=== PATIENT | female | born 1985 | race Caucasian/White ===

== ENCOUNTER 2022-06-03 10:06 | Outpatient (CLI) | payer BC, SELFPAY ==
[2022-06-03 11:25] LABS: Basophils Absolute Auto 0.1 K/mm3 (0.0-0.1); Basophils Percent Auto 0.6 % (0.2-1.2); Eosinophils Absolute Auto 0.2 K/mm3 (0-0.3); Eosinophils Percent Auto 2.3 % (0-4.4); Hematocrit 37.8 % (37.0-47.0); Hemoglobin 12.8 g/dL (12.0-15.0); Immature Granulocyte Absolute 0.02 K/mm3 (0.00-0.031); Immature Granulocyte Percent A 0.2 % (0-0.5); Lymphocytes Absolute Auto 2.05 K/mm3 (0.9-3.2); Lymphocytes Percent Auto 25.3 % (18.3-44.2); Mean Corpuscular HGB Conc 33.9 g/dl (32-36); Mean Corpuscular Hemoglobin 28.8 pg (26-34); Mean Corpuscular Volume 84.9 fl (80-100); Mean Platelet Volume 9.9 fl (7.4-10.4); Monocytes Absolute Auto 0.2 K/mm3 (0.1-0.6); Monocytes Percent Auto 2.8 % (2.6-8.5); Neutrophils Absolute Auto 5.6 K/mm3 (1.3-6.7); Neutrophils Percent Auto 68.8 % (45.5-73.1); Platelet Count Result 246 k/mm3 (150-375); Red Blood Count 4.45 M/mm3 (4.2-5.4); Red Cell Distribution Width 12.8 % (11.5-14.5); White Blood Count 8.1 K/mm3 (4.5-10.0)
[2022-06-03 11:48] LABS: Alanine Aminotransferase 20 U/L (6-35); Alkaline Phosphatase 71 U/L (38-126); Anion Gap 12 mmol/L (8-16); Aspartate Amino Transferase 23 U/L (14-36); Bilirubin,Total 0.4 mg/dL (0.2-1.3); Blood Urea Nitrogen 5 mg/dL (7-17); Carbon Dioxide 25 mmol/L (22-30); Chloride 100 mmol/L (98-107); Estimated Glomerular Filt Rate > 60; Glucose 149 mg/dL (65-110); Glucose 1 Hour PP 50gm Dose 149 mg/dL; Potassium 3.6 mmol/L (3.4-5.0); Sodium 137 mmol/L (137-145)
[2022-06-03 12:15] LABS: Creatinine Urine 163.8 mg/dL
[2022-06-03 12:21] LABS: HIV 1/2 Ab P24 Ag Result Negative (Negative)
[2022-06-03 12:53] LABS: Hepatitis B Surface Antigen Negative (Negative); Rubella IgG Antibody 13.5 IU/ML
[2022-06-03 15:32] LABS: Rapid Plasma Reagin Non-Reactive (NonReactive)
[2022-06-03 22:14] LABS: Total Protein Urine Random < 5 mg/dL
[2022-06-05 16:35] LABS: CMV IgG Antibody <0.60 U/mL (<0.60)
== END 2022-06-03 10:07 | disposition home or self-care (01) ==
LOC: ANHLAB 10:08
PROVIDERS: PCP Internal Medicine; Visit Provider Student in an Organized Health Care Education/Training Program
DX: N94.89 Other specified conditions associated with female genital organs and menstrual cycle (principal); Z87.59 Personal history of other complications of pregnancy, childbirth and the puerperium
CPT/HCPCS: 36415; 80053; 81002; 81050; 82570; 82947; 84156; 84702; 85025; 86592; 86644; 86703; 86747; 86762; 86787; 86850; 86900; 86901; 87086; 87340; G0432

== ENCOUNTER 2022-08-15 08:08 | Outpatient (CLI) | payer BC, SELFPAY ==
[2022-08-15 09:37] LABS: Glucose Fasting 101 mg/dL
[2022-08-15 10:55] LABS: Glucose 1 Hour 193 mg/dL
[2022-08-15 11:56] LABS: Glucose 2 Hour 165 mg/dL
[2022-08-15 13:07] LABS: Glucose 3 Hour 83 mg/dL
== END 2022-08-15 08:09 | disposition home or self-care (01) ==
LOC: ANHLAB 08:12
PROVIDERS: PCP Internal Medicine
DX: O09.299 Supervision of pregnancy with other poor reproductive or obstetric history, unspecified trimester (principal); Z3A.00 Weeks of gestation of pregnancy not specified
CPT/HCPCS: 36415; 82951; 82952

== ENCOUNTER 2022-09-05 22:21 | Observation (INO) | payer BC, SELFPAY ==
[2022-09-05 22:45] VITALS: BP 148/93; PULSE 88
[2022-09-05 23:01] VITALS: BP 125/64; PULSE 75
[2022-09-05 23:16] VITALS: BP 123/74; PULSE 71
[2022-09-05 23:31] VITALS: BP 124/74; PULSE 72
[2022-09-05 23:46] VITALS: BP 135/78; PULSE 74
[2022-09-06 00:01] VITALS: BP 127/67; PULSE 65
[2022-09-06 00:16] VITALS: BP 118/62; PULSE 63
[2022-09-06 00:17] VITALS: BMI 52.9
--- NOTE | 2022-09-06 00:18 | OBADM ---
This patient, Moriah Lala, admitted to the OB room OB Post 115 for observation. Patient/family oriented to hospital policies and general routines including ID bracelet, bed and alarms, visiting hours, pain management, procedures, bathroom and other care routines, personal items, smoking policy, room service/diet, and visiting hours. Patient/Family are encouraged to report perceived risks to care and to ask questions if they do not understand what they are told or what they should do.
[2022-09-06 00:31] VITALS: BP 124/60; PULSE 66
[2022-09-06 00:46] VITALS: BP 120/78; PULSE 67
--- NOTE | 2022-09-07 09:46 | PM.OBTRLD ---
OB - Triage/Final Diagnosis Visit Information Reason for evaluation: other (s/p fall. No impact to abdomen. No complaints. ) Comments/Additional reasons for admission: I have assessed the risk for this patient, Moriah Lala, and determined that she would benefit from observation care.
== END 2022-09-06 00:50 | disposition home or self-care (01) ==
PROVIDERS: Admitting Provider Advanced Practice Midwife; PCP Internal Medicine; Visit Provider Advanced Practice Midwife
DX: O99.891 Other specified diseases and conditions complicating pregnancy (principal); W19.XXXA Unspecified fall, initial encounter
CPT/HCPCS: G0378; G0379

== ENCOUNTER 2022-09-26 12:41 | Outpatient (CLI) | payer BC, SELFPAY ==
[2022-09-26 12:50] LABS: Basophils Percent Auto 0.3 % (0.2-1.2); Eosinophils Absolute Auto 0.2 K/mm3 (0-0.3); Eosinophils Percent Auto 1.4 % (0-4.4); Hematocrit 34.3 % (37.0-47.0); Hemoglobin 11.4 g/dL (12.0-15.0); Immature Granulocyte Absolute 0.06 K/mm3 (0.00-0.031); Immature Granulocyte Percent A 0.5 % (0-0.5); Lymphocytes Absolute Auto 1.78 K/mm3 (0.9-3.2); Lymphocytes Percent Auto 15.6 % (18.3-44.2); Mean Corpuscular HGB Conc 33.2 g/dl (32-36); Mean Corpuscular Hemoglobin 28.8 pg (26-34); Mean Corpuscular Volume 86.6 fl (80-100); Mean Platelet Volume 9.8 fl (7.4-10.4); Monocytes Absolute Auto 0.3 K/mm3 (0.1-0.6); Monocytes Percent Auto 2.9 % (2.6-8.5); Neutrophils Absolute Auto 9.1 K/mm3 (1.3-6.7); Neutrophils Percent Auto 79.3 % (45.5-73.1); Platelet Count Result 272 k/mm3 (150-375); Red Blood Count 3.96 M/mm3 (4.2-5.4); Red Cell Distribution Width 13.5 % (11.5-14.5); White Blood Count 11.4 K/mm3 (4.5-10.0)
[2022-09-26 13:51] LABS: HIV 1/2 Ab P24 Ag Result Negative (Negative)
== END 2022-09-26 12:42 | disposition home or self-care (01) ==
PROVIDERS: PCP Internal Medicine; Visit Provider Obstetrics & Gynecology
DX: Z34.90 Encounter for supervision of normal pregnancy, unspecified, unspecified trimester (principal); Z3A.00 Weeks of gestation of pregnancy not specified
CPT/HCPCS: 36415; 85025; 86703; G0432

== ENCOUNTER 2022-10-26 17:30 | Outpatient (CLI) | payer BC, SELFPAY ==
[2022-10-26 18:01] VITALS: BP 124/76; PULSE 86
[2022-10-26 18:16] VITALS: BP 127/69; PULSE 84
[2022-10-26 18:31] VITALS: BP 126/63; PULSE 82
[2022-10-26 18:32] LABS: Basophils Percent Auto 0.2 % (0.2-1.2); Eosinophils Absolute Auto 0.2 K/mm3 (0-0.3); Eosinophils Percent Auto 2.5 % (0-4.4); Hematocrit 32.1 % (37.0-47.0); Hemoglobin 10.8 g/dL (12.0-15.0); Immature Granulocyte Absolute 0.03 K/mm3 (0.00-0.031); Immature Granulocyte Percent A 0.3 % (0-0.5); Lymphocytes Absolute Auto 2.06 K/mm3 (0.9-3.2); Mean Corpuscular HGB Conc 33.6 g/dl (32-36); Mean Corpuscular Hemoglobin 29.1 pg (26-34); Mean Corpuscular Volume 86.5 fl (80-100); Mean Platelet Volume 10.7 fl (7.4-10.4); Monocytes Absolute Auto 0.4 K/mm3 (0.1-0.6); Monocytes Percent Auto 4.3 % (2.6-8.5); Neutrophils Absolute Auto 6.6 K/mm3 (1.3-6.7); Neutrophils Percent Auto 70.7 % (45.5-73.1); Platelet Count Result 246 k/mm3 (150-375); Red Blood Count 3.71 M/mm3 (4.2-5.4); Red Cell Distribution Width 13.8 % (11.5-14.5); White Blood Count 9.4 K/mm3 (4.5-10.0)
[2022-10-26 18:42] LABS: Alanine Aminotransferase 21 U/L (6-35); Albumin Level 3.4 g/dL (3.5-5.1); Alkaline Phosphatase 128 U/L (38-126); Anion Gap 10 mmol/L (8-16); Aspartate Amino Transferase 27 U/L (14-36); Bilirubin,Total 0.4 mg/dL (0.2-1.3); Blood Urea Nitrogen 7 mg/dL (7-17); Calcium 9.4 mg/dL (8.4-10.2); Carbon Dioxide 21 mmol/L (22-30); Chloride 103 mmol/L (98-107); Estimated Glomerular Filt Rate > 60; Glucose 134 mg/dL (65-110); Potassium 3.5 mmol/L (3.4-5.0); Sodium 134 mmol/L (137-145); Uric Acid 5.7 mg/dL (2.5-7.5)
[2022-10-26 18:46] VITALS: BP 119/67; PULSE 75
[2022-10-26 19:00] LABS: Appearance Urine Cloudy (Clear); Bacteria Urine 4+ /hpf; Bilirubin Urine Negative (Negative); Blood Urine Negative (Negative); Color Urine Dark Yellow (Yellow); Creatinine Urine 209.3 mg/dL; Glucose Urine UA Negative (Negative); Hyaline Casts Urine Present /lpf; Ketones Urine Trace mg/dL (Negative); Leukocyte Esterase Ur 1+ LEU/UL (NEGATIVE); Nitrate Urine Negative (Negative); Protein Urine Trace mg/dL (Negative); Specific Grav Ur 1.022 (1.001-1.035); Squamous Epithelial Cell Urine Moderate /hpf (Few); Total Protein Urine Random 22 mg/dL; Ur Ttl Prot Creatinine Ratio 0.11 mg/mg (0-0.20); WBC Urine 21-50 /hpf (0-3)
[2022-10-26 19:01] VITALS: BP 111/67; PULSE 73
[2022-10-26 19:09] LABS: Add Urine Microscopic? YES
== END 2022-10-26 19:12 | disposition home or self-care (01) ==
LOC: ANHOBOP 17:34 → ANHOBPP 17:35
PROVIDERS: PCP Internal Medicine; Visit Provider Student in an Organized Health Care Education/Training Program
DX: O99.891 Other specified diseases and conditions complicating pregnancy (principal); R03.0 Elevated blood-pressure reading, without diagnosis of hypertension
CPT/HCPCS: 36415; 59025; 80053; 81001; 82570; 84156; 84550; 85025; 87086; 87088; 99199

== ENCOUNTER 2022-11-01 00:05 | Outpatient (CLI) | payer BC, SELFPAY ==
[2022-11-01 00:29] VITALS: BP 131/70; PULSE 71
[2022-11-01 00:31] VITALS: BP 126/60; PULSE 71
[2022-11-01 00:46] VITALS: BP 110/51; PULSE 71
[2022-11-01 00:46] LABS: Basophils Percent Auto 0.3 % (0.2-1.2); Eosinophils Absolute Auto 0.2 K/mm3 (0-0.3); Hematocrit 32.2 % (37.0-47.0); Hemoglobin 10.7 g/dL (12.0-15.0); Immature Granulocyte Absolute 0.05 K/mm3 (0.00-0.031); Immature Granulocyte Percent A 0.5 % (0-0.5); Lymphocytes Absolute Auto 2.69 K/mm3 (0.9-3.2); Lymphocytes Percent Auto 27.4 % (18.3-44.2); Mean Corpuscular HGB Conc 33.2 g/dl (32-36); Mean Corpuscular Hemoglobin 27.9 pg (26-34); Mean Corpuscular Volume 83.9 fl (80-100); Mean Platelet Volume 10.8 fl (7.4-10.4); Monocytes Absolute Auto 0.4 K/mm3 (0.1-0.6); Monocytes Percent Auto 3.8 % (2.6-8.5); Neutrophils Absolute Auto 6.5 K/mm3 (1.3-6.7); Platelet Count Result 257 k/mm3 (150-375); Red Blood Count 3.84 M/mm3 (4.2-5.4); Red Cell Distribution Width 13.4 % (11.5-14.5); White Blood Count 9.8 K/mm3 (4.5-10.0)
[2022-11-01 00:53] LABS: Appearance Urine Clear (Clear); Bilirubin Urine Negative (Negative); Blood Urine Negative (Negative); Color Urine Yellow (Yellow); Glucose Urine UA Negative (Negative); Ketones Urine Negative (Negative); Leukocyte Esterase Ur Negative LEU/UL (NEGATIVE); Nitrate Urine Negative (Negative); Protein Urine Negative (Negative); pH Urine 6.5 (5.0-9.0)
[2022-11-01 01:01] VITALS: BP 120/69; PULSE 72
[2022-11-01 01:05] LABS: Alanine Aminotransferase 40 U/L (6-35); Albumin Level 3.2 g/dL (3.5-5.1); Alkaline Phosphatase 144 U/L (38-126); Anion Gap 5 mmol/L (8-16); Aspartate Amino Transferase 29 U/L (14-36); Bilirubin,Total 0.4 mg/dL (0.2-1.3); Blood Urea Nitrogen 3 mg/dL (7-17); Calcium 8.9 mg/dL (8.4-10.2); Carbon Dioxide 22 mmol/L (22-30); Chloride 105 mmol/L (98-107); Estimated Glomerular Filt Rate > 60; Glucose 108 mg/dL (65-110); Potassium 3.9 mmol/L (3.4-5.0); Sodium 132 mmol/L (137-145); Total Protein Urine Random 11 mg/dL; Ur Ttl Prot Creatinine Ratio 0.19 mg/mg (0-0.20); Uric Acid 3.6 mg/dL (2.5-7.5)
[2022-11-01 01:12] LABS: Add Urine Microscopic? NO
[2022-11-01 01:16] VITALS: BP 113/76; PULSE 68
[2022-11-01 01:28] VITALS: BMI 52.9
--- NOTE | 2022-11-01 01:28 | OBADM ---
This patient, Moriah Lala, admitted to the OB room OB Post 117 for observation. Patient/family oriented to hospital policies and general routines including ID bracelet, bed and alarms, visiting hours, pain management, procedures, bathroom and other care routines, personal items, smoking policy, room service/diet, and visiting hours. Patient/Family are encouraged to report perceived risks to care and to ask questions if they do not understand what they are told or what they should do.
[2022-11-01 01:31] VITALS: BP 110/62; PULSE 68
== END 2022-11-01 01:40 | disposition home or self-care (01) ==
LOC: ANHOBOP 00:08 → ANHOBPP 11-09 06:33
PROVIDERS: Obstetrics & Gynecology Gynecology; PCP Internal Medicine; Visit Provider Student in an Organized Health Care Education/Training Program
DX: O13.9 Gestational [pregnancy-induced] hypertension without significant proteinuria, unspecified trimester (principal); Z3A.00 Weeks of gestation of pregnancy not specified
CPT/HCPCS: 36415; 80053; 81003; 82570; 84156; 84550; 85025; 87086; 99199

== ENCOUNTER 2022-11-02 10:52 | Outpatient (NON) | payer BC, SELFPAY ==
[2022-11-02 11:36] LABS: Collection Time Urine 24 HOURS
[2022-11-02 11:47] LABS: Creatinine Urine 34.7 mg/dL; Total Protein Urine 24 Hr 312 mg/24hr (28-141); Total Protein Urine Random 13 mg/dL; Total Volume 24 Hour Urine 2400 ml
[2022-11-02 11:48] LABS: Patient Weight 272 Lbs
== END 2022-11-02 10:53 | disposition home or self-care (01) ==
LOC: ANHOBOP 10:58
PROVIDERS: PCP Internal Medicine; Visit Provider Obstetrics & Gynecology Gynecology
DX: O99.891 Other specified diseases and conditions complicating pregnancy (principal); R03.0 Elevated blood-pressure reading, without diagnosis of hypertension
CPT/HCPCS: 81050; 82575; 84156

== ENCOUNTER 2022-11-08 18:31 | Outpatient (CLI) | payer BC, SELFPAY ==
--- NOTE | 2022-11-08 18:50 | PC.NURSE ---
Patient arrived to OB unit with complaints of elevated blood pressures and edema. Patient reports history of c/s at 34 weeks related to preeclampsia in previous . Upon arrival patient bp 133/93. Pulse of 82. Patient denies DILLARD, blurred vision. Reflexes 2+ with absent clonus. Patient reports mild right sided pain. FHT appropriate for gestational age.
[2022-11-08 18:52] VITALS: BP 133/93; PULSE 90
[2022-11-08 19:09] LABS: Basophils Absolute Auto 0.1 K/mm3 (0.0-0.1); Basophils Percent Auto 0.5 % (0.2-1.2); Eosinophils Absolute Auto 0.1 K/mm3 (0-0.3); Eosinophils Percent Auto 1.3 % (0-4.4); Hematocrit 32.6 % (37.0-47.0); Hemoglobin 10.6 g/dL (12.0-15.0); Immature Granulocyte Absolute 0.05 K/mm3 (0.00-0.031); Immature Granulocyte Percent A 0.5 % (0-0.5); Lymphocytes Percent Auto 22.1 % (18.3-44.2); Mean Corpuscular HGB Conc 32.5 g/dl (32-36); Monocytes Absolute Auto 0.4 K/mm3 (0.1-0.6); Monocytes Percent Auto 4.3 % (2.6-8.5); Neutrophils Absolute Auto 7.1 K/mm3 (1.3-6.7); Neutrophils Percent Auto 71.3 % (45.5-73.1); Platelet Count Result 245 k/mm3 (150-375); Red Blood Count 3.79 M/mm3 (4.2-5.4); Red Cell Distribution Width 13.7 % (11.5-14.5)
[2022-11-08 19:13] LABS: Appearance Urine Cloudy (Clear); Bacteria Urine 2+ /hpf; Bilirubin Urine Negative (Negative); Blood Urine Negative (Negative); Color Urine Yellow (Yellow); Glucose Urine UA Negative (Negative); Ketones Urine Negative (Negative); Leukocyte Esterase Ur Trace LEU/UL (NEGATIVE); Nitrate Urine Negative (Negative); Non Pathogenic Casts 0-2; Protein Urine 1+ mg/dL (Negative); RBC Urine 0-2 /hpf (0-2); Specific Grav Ur 1.019 (1.001-1.035); Squamous Epithelial Cell Urine Moderate /hpf (Few)
[2022-11-08 19:15] LABS: Add Urine Microscopic? YES
[2022-11-08 19:16] VITALS: BP 117/66; PULSE 83
[2022-11-08 19:16] LABS: Creatinine Urine 132.5 mg/dL; Total Protein Urine Random 18 mg/dL; Ur Ttl Prot Creatinine Ratio 0.14 mg/mg (0-0.20)
[2022-11-08 19:21] LABS: Alanine Aminotransferase 18 U/L (6-35); Albumin Level 3.3 g/dL (3.5-5.1); Alkaline Phosphatase 140 U/L (38-126); Anion Gap 7 mmol/L (8-16); Aspartate Amino Transferase 17 U/L (14-36); Bilirubin,Total 0.4 mg/dL (0.2-1.3); Blood Urea Nitrogen 5 mg/dL (7-17); Calcium 8.4 mg/dL (8.4-10.2); Carbon Dioxide 23 mmol/L (22-30); Chloride 103 mmol/L (98-107); Estimated Glomerular Filt Rate > 60; Glucose 114 mg/dL (65-110); Potassium 3.7 mmol/L (3.4-5.0); Sodium 133 mmol/L (137-145); Uric Acid 3.4 mg/dL (2.5-7.5)
[2022-11-08 19:31] VITALS: BP 131/70; PULSE 83
--- NOTE | 2022-11-08 19:34 | PC.NURSE ---
Reported lab results to Dr. Hartman as well as maternal and assessments. Patient may be discharged to home, instructed to follow up at scheduled OB appointment.
--- NOTE | 2022-11-08 19:45 | PC.NURSE ---
HIP precautions reviewed with patient. Patient verbalizes understanding. All questions were answered. Patient left ambulating at 1945
== END 2022-11-08 19:45 | disposition home or self-care (01) ==
LOC: ANHOBOP 18:35 → ANHOBPP 18:35
PROVIDERS: Obstetrics & Gynecology; PCP Internal Medicine; Visit Provider Obstetrics & Gynecology
DX: O13.9 Gestational [pregnancy-induced] hypertension without significant proteinuria, unspecified trimester (principal); Z3A.00 Weeks of gestation of pregnancy not specified
CPT/HCPCS: 36415; 59025; 80053; 81001; 82570; 84156; 84550; 85025; 87086; 99199

== ENCOUNTER 2022-11-17 11:03 | Outpatient (RCR) | payer BC, SELFPAY ==
[2022-11-10 14:18] VITALS: BP 148/87; PULSE 85
[2022-11-13 17:13] VITALS: BP 122/77; PULSE 77
[2022-11-17 11:30] LABS: Basophils Percent Auto 0.3 % (0.2-1.2); Eosinophils Absolute Auto 0.2 K/mm3 (0-0.3); Eosinophils Percent Auto 1.6 % (0-4.4); Hemoglobin 10.8 g/dL (12.0-15.0); Immature Granulocyte Absolute 0.05 K/mm3 (0.00-0.031); Immature Granulocyte Percent A 0.5 % (0-0.5); Lymphocytes Absolute Auto 1.79 K/mm3 (0.9-3.2); Lymphocytes Percent Auto 18.8 % (18.3-44.2); Mean Corpuscular HGB Conc 32.7 g/dl (32-36); Mean Corpuscular Hemoglobin 28.1 pg (26-34); Mean Corpuscular Volume 85.9 fl (80-100); Mean Platelet Volume 11.2 fl (7.4-10.4); Monocytes Absolute Auto 0.4 K/mm3 (0.1-0.6); Monocytes Percent Auto 4.4 % (2.6-8.5); Neutrophils Absolute Auto 7.1 K/mm3 (1.3-6.7); Neutrophils Percent Auto 74.4 % (45.5-73.1); Platelet Count Result 217 k/mm3 (150-375); Red Blood Count 3.84 M/mm3 (4.2-5.4); Red Cell Distribution Width 13.9 % (11.5-14.5); White Blood Count 9.5 K/mm3 (4.5-10.0)
[2022-11-17 11:37] LABS: Creatinine Urine 163.9 mg/dL; Total Protein Urine Random 47 mg/dL; Ur Ttl Prot Creatinine Ratio 0.29 mg/mg (0-0.20)
[2022-11-17 11:43] LABS: Alanine Aminotransferase 15 U/L (6-35); Albumin Level 3.4 g/dL (3.5-5.1); Alkaline Phosphatase 150 U/L (38-126); Anion Gap 6 mmol/L (8-16); Aspartate Amino Transferase 18 U/L (14-36); Bilirubin,Total 0.4 mg/dL (0.2-1.3); Blood Urea Nitrogen 5 mg/dL (7-17); Calcium 9.5 mg/dL (8.4-10.2); Carbon Dioxide 23 mmol/L (22-30); Chloride 104 mmol/L (98-107); Estimated Glomerular Filt Rate > 60; Glucose 103 mg/dL (65-110); Sodium 133 mmol/L (137-145); Uric Acid 4.3 mg/dL (2.5-7.5)
[2022-11-17 11:48] LABS: Appearance Urine Cloudy (Clear); Bacteria Urine 4+ /hpf; Bilirubin Urine Negative (Negative); Blood Urine Negative (Negative); Color Urine Yellow (Yellow); Glucose Urine UA Negative (Negative); Ketones Urine Trace mg/dL (Negative); Leukocyte Esterase Ur 1+ LEU/UL (NEGATIVE); Need Manual Microscopic Reviewed; Nitrate Urine Negative (Negative); Protein Urine 1+ mg/dL (Negative); Specific Grav Ur 1.021 (1.001-1.035); Squamous Epithelial Cell Urine Many /hpf (Few); WBC Urine 21-50 /hpf (0-3)
[2022-11-17 11:49] LABS: Add Urine Microscopic? YES
[2022-11-17 12:03] VITALS: BP 159/98
== END 2022-12-18 17:38 | disposition home or self-care (01) ==
LOC: ANHOBOP 11:03
PROVIDERS: Obstetrics & Gynecology; PCP Internal Medicine; Visit Provider Student in an Organized Health Care Education/Training Program
DX: O16.3 Unspecified maternal hypertension, third trimester (principal); Z3A.36 36 weeks gestation of pregnancy; Z3A.37 37 weeks gestation of pregnancy
CPT/HCPCS: 36415; 59025; 80053; 81001; 82570; 84156; 84550; 85025; 87086

== ENCOUNTER 2022-11-19 17:33 | Outpatient (CLI) | payer BC, SELFPAY ==
[2022-11-19 17:50] LABS: Hematocrit 31.5 % (37.0-47.0); Hemoglobin 10.3 g/dL (12.0-15.0); Mean Corpuscular HGB Conc 32.7 g/dl (32-36); Mean Corpuscular Hemoglobin 28.1 pg (26-34); Mean Corpuscular Volume 86.1 fl (80-100); Mean Platelet Volume 10.8 fl (7.4-10.4); Platelet Count Result 195 k/mm3 (150-375); Red Blood Count 3.66 M/mm3 (4.2-5.4); White Blood Count 10.3 K/mm3 (4.5-10.0)
[2022-11-20 10:30] LABS: Rapid Plasma Reagin Non-Reactive (NonReactive)
== END 2022-11-19 17:34 | disposition home or self-care (01) ==
LOC: ANHLAB 17:35
PROVIDERS: PCP Internal Medicine; Visit Provider Obstetrics & Gynecology
DX: Z01.812 Encounter for preprocedural laboratory examination (principal)
CPT/HCPCS: 36415; 85027; 86592; 86850; 86900; 86901

== ENCOUNTER 2022-11-20 09:54 | Inpatient (IN) | payer BC, SELFPAY ==
--- NOTE | 2022-11-10 14:07 | PC.NURSE ---
Patient states she will be a repeat c/s-- has not be scheduled at time of pre-admit Patient given requisition for lab draw prior to surgery
--- NOTE | 2022-11-19 13:38 | WPDANESEPPF ---
Anes - Initial Pre Proc Eval Procedure: Operation Date: 11/20/22 12:00 Proposed Procedures p Repeat Section - Justyn Nuñez MD Date/Time: 11/19/22 13:38 Surgeon: Mikey Gandhi MD Pre Op Diagnosis: C/S Patient Data Age: 37 Gender: F Height: Weight: Allergies Allergy/AdvReac Type Severity Reaction Status Date / Time No Known Allergies Allergy Verified 11/16/22 17:04 Home Medications Medication Instructions Recorded Confirmed Type prenat.vits,jing,xyv-bzox-scldy 1 tablet PO DAILY 06/04/22 11/20/22 History aspirin 81 mg chewable tablet 162 mg PO DAILY 08/04/22 11/20/22 History Patient hx anesthesia problems: none Family hx anesthesia problems: none Results Review: All pre-operative results and documents have been reviewed as part of the pre-operative evaluation. [facility] Past Medical History Medical History (Updated 11/20/22 @ 13:02 by Charles Scott MD) Cyst near tailbone cyst removed Obesity Obesity, morbid, BMI 50 or higher Preeclampsia Suppression of menstruation Surgical History Surgical History Delivery by section (10/12/18) primary c/s 34 weeks preeclampsia/ edema Family History Family History Grandparent Diabetes mellitus Alzheimer disease Cancer Social History Social History Smoking status: Never smoker Alcohol intake: never Substance use: never Substance use type: does not use Lack of Transportation: No Lack of Food: Never True Current Housing: I Have Housing Concerned About Future Housing: No Difficulty Paying Gas/Electric Bills: No Difficulty Paying for Meds: No Currently Unemployed: No Education: Bachelor's Degree Difficulty w/ Childcare or Family Care: No Living arrangements: other Additional living arrangements comments: Occupation/Education: other Additional occupation/education comments: self employed Gender identity (if verbalized by the patient): Female Sexual Orientation (if Verbalized by the Patient): Straight or Heterosexual Spiritual care concerns: No Anes - Eval Final PreProcedure Day of Procedure 11/19/22 13:38 Patient weight: super morbidly obese Heart: regular rate and rhythm Lungs: clear to auscultation and normal air movement Airway: Mallampati scale class II Neurological: alert and oriented Last oral intake: >/= 8 hours ASA classification: III Emergent: no Anesthetic plan: proceed Anesthesia type and monitoring: regional spinal Results Review: All pre-operative results and documents have been reviewed as part of the pre-operative evaluation. Informed Consent: The patient's anesthetic plan and its attendant risks and benefits were discussed with the patient/family/POA. Questions were solicited and answers provided to the satisfaction of the patient/family/POA.
--- NOTE | 2022-11-19 16:23 | PM.IMHP ---
H&P: HPI History of Present Illness Date/Time: 11/19/22 16:23 Chief Complaint: gestational hypertension intrauterine at term history of section x1 class 3 obesity Narrative: 37-year-old who presents at 38 weeks 0 days for repeat section for gestational hypertension. Patient's obstetric history is complicated by history of preeclampsia requiring delivery via at 34 weeks. Patient did not require any antihypertensive medications . Patient developed gestational hypertension in this . Preeclampsia lab work remained within normal limits. Patient's blood pressures were beginning to exacerbate. Her protein level was rising but had not reached qualification for preeclampsia. Patient's medical history also complicated by class 3 obesity. Review of Systems Cardiovascular: Cardiovascular: Denies chest pain, Denies leg edema, Denies palpitations, Denies dyspnea and Denies dyspnea on exertion Respiratory: Respiratory: Denies cough, Denies dyspnea and Denies dyspnea on exertion Gastrointestinal: Gastrointestinal: Denies abdominal pain, Denies constipation, Denies diarrhea, Denies nausea and Denies vomiting Genitourinary: Genitourinary: Denies hematuria, Denies urinary frequency, Denies dysuria, Denies pelvic pain, Denies urinary incontinence and Denies vaginal discharge Neurologic: Reports system reviewed and no additional complaints, except as documented Psychiatric: Psychiatric: Reports no additional psychiatric complaints Endocrine: Endocrine: Denies palpitations PMFSH Past Medical History Medical History Cyst near tailbone cyst removed Obesity Preeclampsia Suppression of menstruation Surgical History Surgical History Delivery by section (10/12/18) primary c/s 34 weeks preeclampsia/ edema Family History Family History Grandparent Diabetes mellitus Alzheimer disease Cancer Social History Social History Smoking status: Never smoker Alcohol intake: never Substance use: never Substance use type: does not use Living arrangements: other Additional living arrangements comments: Occupation/Education: other Additional occupation/education comments: self employed Gender identity (if verbalized by the patient): Female Sexual Orientation (if Verbalized by the Patient): Straight or Heterosexual Spiritual care concerns: No Meds Home Medications and Allergies Home Medications Medication Instructions Recorded Confirmed Type prenat.vits,jing,cwy-pnbq-ubcdq 1 tablet PO DAILY 06/04/22 10/13/22 History aspirin 81 mg chewable tablet 162 mg PO DAILY 08/04/22 10/13/22 History Allergies Allergy/AdvReac Type Severity Reaction Status Date / Time No Known Allergies Allergy Verified 11/16/22 17:04 Exam Const: General: no acute distress Eyes: EOM: EOMs intact bilaterally Neck: Neck: supple Thyroid: thyroid normal Chest: Breast/axilla inspection: normal inspection of the breasts Breast/axilla palpation: normal palpation of the breasts, normal palpation of the axillae and no axillary lymphadenopathy Resp: Effort & Inspection: normal respiratory effort Auscultation: clear to auscultation bilaterally Cardio: Rate: regular rate Rhythm: regular rhythm GI: Inspection: non-distended and other (Gravid) GI Palp: Yes Soft to palpation, No Tenderness to palpation present (GI) and No Guarding due to palpation present (GI) Auscultation: normal bowel sounds : Speculum Exam - Vagina: No vaginal bleeding OB/external & speculum: external exam normal; No vaginal bleeding Skin: General skin exam: normal color and no rashes or lesions noted Neuro: Cognition (Neuro): normal cognition Speech: normal speech
[2022-11-20] VITALS (48 sets, daily range): BP systolic 100–166; BP diastolic 42–100; PULSE 53–80; RESP 14–20; TEMP 36.3–36.6; O2SAT 95–99; BMI 56.0
--- NOTE | 2022-11-20 09:54 | LDADM ---
This patient, Moriah Lala, was admitted to Labor/Delivery/Recovery 120 on 11/20/22 at 09:54. Plans for labor, pain management and were discussed with patient. Patient/family oriented to hospital policies and general routines including ID bracelet, bed and alarms, visiting hours, pain management, procedures, bathroom and other care routines, personal items, smoking policy, room service/diet and guest tray routines, security routines, and visiting hours. Patient/Family are encouraged to report perceived risks to care and to ask questions if they do not understand what they are told or what they should do. See OBIX for further documentation.
[2022-11-20] MEDS: LACTATED RINGERS 1,000 ML 999 ML IV CONT (10:33)
[2022-11-20] MEDS: LACTATED RINGERS 1,000 ML 125 ML IV CONT ×2 (11:13→13:40)
[2022-11-20] MEDS: ceFAZolin 3 GM/D5W 100 ML 100 ML IVPB (13:42)
--- NOTE | 2022-11-20 14:50 | W.PM.PROC2 ---
Procedure Note - Detailed Date of Procedure 11/20/22 Pre-op Diagnosis intrauterine at term prior x 1 obesity gestational hypertension Post-op Diagnosis Same Procedure Performed repeat low transverse Surgeon Justyn Nuñez MD Anesthesia Spinal and Epidural Description of Procedure The patient was taken to the operating room. A combined spinal epidural anesthesic was administered and found to be adequate at a t-10 level. The patient was placed in a supine position with a slight left lateral tilt. A maguire catheter was placed with return of clear urine. A Bovie grounding pad was placed. Surgical prep was performed and surgical drapes were placed. A surgical time out was performed. A Pfannenstiel skin incision was then made with the scalpel and carried through to the underlying layer of fascia. The fascia was then incised in the midline and the incision was extended laterally with the Lovell scissors. The superior aspect of the fascia was then grasped with the Rupinder clamps, elevated, and the underlying rectus muscles dissected off bluntly and sharply. Attention was then turned to the inferior aspect of this incision which, in a similar fashion, was grasped, tented up with the Rupinder clamps, and the rectus muscles dissected off both bluntly and sharply. The rectus muscles were then in the midline. The peritoneum was identified and entered bluntly. The peritoneal incision was then extended superiorly and inferiorly with good visualization of the bladder. There is some adnexal adhesions to the anterior abdominal wall. These adhesions were taken down with Bovie cautery. An Rommel retractor was used for better visualization. The vesico-uterine serosa was identified and dissected to create a bladder flap. The bladder blade was reinserted. The uterus was inspected for rotation. A low-transverse uterine incision was made sharply with the scalpel and entry was made into the uterine cavity. An amniotomy was made and copious amounts of clear fluid were noted on return. The uterine incision was extended laterally bluntly. Attempt was made to deliver the head to the hysterotomy. Due to body habitus, fundal pressure was inadequate. As this was anticipated, Underwood forceps were ready on the table. fetus was known to be LEODAN with face facing maternal right. Underwood forceps blades were guided through the hysterotomy and positioned correctly on the head. Gentle traction was applied with fundal pressure. head was easily delivered through the hysterotomy. Forceps were disarticulated. Nuchal cord x1 was noticed and reduced. The remainder the fetus was delivered atraumatically. Patient had good tone, grimace, cry at the time of delivery. The umbilical cord was clamped twice and cut. The infant was handed off to the waiting staff. At the time of the delivery, the had good color, tone and grimace. The cried with minimal stimulation. A second segment of umbilical cord was clamped and cut for cord blood gasses. Cord blood was collected for determination of the blood type and for direct Littlejohn. The placenta was delivered spontaneously without difficulty. The placenta appeared grossly normal and complete. The uterus was exteriorized and cleared of all clots and debris. The uterine incision was repaired using 0-monocryl suture in a running fashion. The uterine closure was inspected for hemostasis. The posterior aspect of the uterus and the broad ligaments were inspected and the posterior cul-de-sac cleared of fluid and blood clots. The uterine closure was again inspected and found to be hemostatic. The uterus was returned to the abdominal cavity. The pericolic gutters were inspected and were cleared of all blood clots and debris. The uterine closure was then re inspected to ensure hemostasis as were all subfascial tissues. The peritoneum was closed using 3-0 vicryl in a running fashion. The fascia
[2022-11-20] MEDS: OXYTOCIN 30 UNITS/NS 500 ML 30 UNITS/500 ML BAG 125 UNITS IV CONT (15:28)
--- NOTE | 2022-11-20 17:20 | OBPPTRN ---
Patient transferred to post room # 282 via stretcher accompanied by fob and infant. Pt transferred to bed via maxi air without difficulty. Pt introductions made and plan of care discussed per post op c section, pain management, bottle feeding, daily care activities. Support person present. No barriers to learning identified at this time. PT given such instructions via one to one discussion, mom baby care guide and demonstration this shift. Oriented to unit, room, information board, rooming in, admission packet and security measures. Patient verbalizes understanding.
[2022-11-20] MEDS: SIMETHICONE 80 MG TAB.CHEW PO (19:19)
[2022-11-20] MEDS: HYDROcodone/acetaminophen (*CRX) 5-325 MG TABLET 1 TAB PO (19:19)
[2022-11-20] MEDS: KETOROLAC 30 MG/ML VIAL (*BKC) IV PUSH (19:20)
[2022-11-20] MEDS: DEXTROSE 5%/0.45% SOD CHL 1,000 ML 125 ML IV CONT (20:12)
[2022-11-20] MEDS: HYDROcodone/acetaminophen (*CRX) 10-325 MG TABLET 1 TAB PO (23:23)
[2022-11-21] MEDS: KCL 20 MEQ/D5/0.45% SOD CHL 1,000 ML 125 ML IV CONT (04:00)
[2022-11-21 04:38] LABS: Basophils Percent Auto 0.4 % (0.2-1.2); Eosinophils Absolute Auto 0.2 K/mm3 (0-0.3); Eosinophils Percent Auto 1.8 % (0-4.4); Hematocrit 30.7 % (37.0-47.0); Hemoglobin 9.7 g/dL (12.0-15.0); Immature Granulocyte Absolute 0.04 K/mm3 (0.00-0.031); Immature Granulocyte Percent A 0.4 % (0-0.5); Mean Corpuscular HGB Conc 31.6 g/dl (32-36); Mean Corpuscular Hemoglobin 27.7 pg (26-34); Mean Corpuscular Volume 87.7 fl (80-100); Mean Platelet Volume 11.5 fl (7.4-10.4); Monocytes Absolute Auto 0.5 K/mm3 (0.1-0.6); Monocytes Percent Auto 4.2 % (2.6-8.5); Neutrophils Absolute Auto 8.5 K/mm3 (1.3-6.7); Neutrophils Percent Auto 79.2 % (45.5-73.1); Platelet Count Result 181 k/mm3 (150-375); White Blood Count 10.7 K/mm3 (4.5-10.0)
[2022-11-21] MEDS: HYDROcodone/acetaminophen (*CRX) 10-325 MG TABLET 1 TAB PO ×4 (04:38→15:07)
--- NOTE | 2022-11-21 07:03 | WPDANLDNPN2 ---
Anes-Prog Note L&D-Neuraxial Date/Time: 11/21/22 07:03 Neuraxial medications: intrathecal PF morphine Opiod-related complaints: none Patient feedback: Patient satisfied with post-operative pain management.
--- NOTE | 2022-11-21 07:03 | WPDANLDPN2 ---
Anes-Prog Note L&D Date/Time: 11/21/22 07:03 Comfortable throughout: section Neuraxial method: spinal Epidural/Spinal procedure site: clean & non-tender Neuro status: Neuro function grossly intact. Cardiovascular status: normal Respiratory status: normal Airway patency: baseline Mental status: baseline Post-Op hydration status: normal Vital Signs: Last Vital Signs Temp 36.4 C 11/20/22 23:28 Pulse 80 11/20/22 23:28 Resp 18 11/20/22 23:28 BP 130/86 11/20/22 23:28 Pulse Ox 99 11/20/22 23:28 O2 Del Method Room Air 11/20/22 23:38 Pain score (VAS): 3 I/O: Intake & Output 11/20/22 11/20/22 11/21/22 15:59 23:59 07:59 Intake Total 1000 1480 1800 Output Total 425 335 700 Balance 575 1145 1100 Patient feedback: Patient satisfied with anesthetic care.
--- NOTE | 2022-11-21 07:06 | PM.OBPNVD ---
OB - PN: Subj Subjective Date/time seen: 11/21/22 07:06 Interval history: She has adequate pain control, no flatus, tolerated reg diet, has ambulated in room. No SOB or CP. Mild tenderness in lower ext bilat. OB - PN: Obj Data Labs 11/21/22 04:08 Labs: Laboratory Results - last 24 hr 11/21/22 04:08 WBC 10.7 H RBC 3.50 L Hgb 9.7 L Hct 30.7 L MCV 87.7 MCH 27.7 MCHC 31.6 L RDW 14.0 Plt Count 181 MPV 11.5 H Immature Gran % (Auto) 0.4 Neut % (Auto) 79.2 H Lymph % (Auto) 14.0 L [place] % (Auto) 4.2 Eos % (Auto) 1.8 Baso % (Auto) 0.4 Lymph # (Auto) 1.50 [place] # (Auto) 0.5 Eos # (Auto) 0.2 Baso # (Auto) 0.0 Abs Immat Gran (auto) 0.04 H Absolute Neuts (auto) 8.5 H Absolute Nucleated RBC 0.0 Nucleated RBC % 0.0 OB - PN A/P Assessment and Plan (1) Previous section: Code(s): Z98.891 - History of uterine scar from previous surgery Status: Acute Assessment and Plan: POD 1 s/p repeat c/s. She is doing well. Stable blood pressures. Routine post op care. Asymptomatic mild anemia. Iron supplementation. Time Spent With Patient Time: Total time spent is greater than 50% in coordination of care (as documented) at patient's floor/unit and/or counseling patient: Exam Const: General: comfortable and no acute distress Resp: Effort & Inspection: normal respiratory effort GI: Inspection: normal to inspection Other: fundus at umb firm nontender dressing small amount soiling near vacuum insertion on dressing pad, nothing expressed Extrem: General: normal to inspection and no calf tenderness Psych: Mental Status: mental status grossly normal Affect: normal affect
[2022-11-21 08:15] VITALS: BP 127/85; PULSE 76; RESP 16; TEMP 36.7; O2SAT 98
[2022-11-21] MEDS: POLYSACCHARIDE IRON COMPLEX 150 MG CAPSULE PO ×2 (08:32→16:09)
[2022-11-21] MEDS: MULTIVIT/MIN/PREN/FOL AC/IRON TABLET 1 TAB PO (08:32)
[2022-11-21] MEDS: DOCUSATE SODIUM 100 MG CAPSULE PO ×2 (08:32→16:09)
[2022-11-21] MEDS: IBUPROFEN 600 MG TABLET PO ×2 (08:32→15:07)
[2022-11-21 18:45] VITALS: BP 143/77; PULSE 78; RESP 16; TEMP 37; O2SAT 99
[2022-11-21] MEDS: HYDROcodone/acetaminophen (*CRX) 5-325 MG TABLET 1 TAB PO (19:08)
[2022-11-21] MEDS: SIMETHICONE 80 MG TAB.CHEW PO (19:08)
[2022-11-22] MEDS: HYDROcodone/acetaminophen (*CRX) 10-325 MG TABLET 1 TAB PO (00:18)
[2022-11-22] MEDS: IBUPROFEN 600 MG TABLET PO ×4 (00:18→21:37)
[2022-11-22] MEDS: SIMETHICONE 80 MG TAB.CHEW PO ×3 (00:19→21:37)
[2022-11-22] MEDS: HYDROcodone/acetaminophen (*CRX) 5-325 MG TABLET 1 TAB PO ×6 (03:39→21:37)
[2022-11-22] MEDS: DOCUSATE SODIUM 100 MG CAPSULE PO ×2 (07:47→17:18)
[2022-11-22] MEDS: POLYSACCHARIDE IRON COMPLEX 150 MG CAPSULE PO ×2 (07:47→17:18)
[2022-11-22] MEDS: MULTIVIT/MIN/PREN/FOL AC/IRON TABLET 1 TAB PO (07:48)
[2022-11-22 08:00] VITALS: BP 151/94; PULSE 80; RESP 16; TEMP 36.6; O2SAT 98
[2022-11-22 10:15] VITALS: BP 153/88; PULSE 66
[2022-11-22] MEDS: NIFEdipine 30 MG TAB.ER.24 PO (10:26)
[2022-11-22 10:43] LABS: Hematocrit 29.1 % (37.0-47.0); Hemoglobin 9.2 g/dL (12.0-15.0); Mean Corpuscular HGB Conc 31.6 g/dl (32-36); Mean Corpuscular Hemoglobin 27.9 pg (26-34); Mean Corpuscular Volume 88.2 fl (80-100); Mean Platelet Volume 10.7 fl (7.4-10.4); Platelet Count Result 220 k/mm3 (150-375); Red Cell Distribution Width 14.3 % (11.5-14.5); White Blood Count 9.9 K/mm3 (4.5-10.0)
--- NOTE | 2022-11-22 10:45 | PM.OBPNVD ---
OB - PN: Subj Subjective Date/time seen: 11/22/22 10:45 Interval history: She has adequate pain control, positive flatus, tolerated reg diet, has ambulated wthout problems. No SOB or CP. Denies headache scotomata or RUQ pain. OB - PN: Obj Data Labs 11/22/22 10:36 11/22/22 10:36 Labs: Laboratory Results - last 24 hr 11/22/22 10:36 WBC 9.9 RBC 3.30 L Hgb 9.2 L Hct 29.1 L MCV 88.2 MCH 27.9 MCHC 31.6 L RDW 14.3 Plt Count 220 MPV 10.7 H OB - PN A/P Assessment and Plan (1) Previous section: Code(s): Z98.891 - History of uterine scar from previous surgery Status: Acute Assessment and Plan: Doing well. Routine post op care. (2) Elevated blood pressure reading: Code(s): R03.0 - Elevated blood-pressure reading, without diagnosis of hypertension Status: Acute Assessment and Plan: Persistant this morning. No signs or symptoms of pre-eclampsia. PIH labs today. Will start Procardia. Time Spent With Patient Time: Total time spent is greater than 50% in coordination of care (as documented) at patient's floor/unit and/or counseling patient: Exam Const: General: comfortable and no acute distress Eyes: General: appearance normal, both eyes and all related structures Resp: Effort & Inspection: normal respiratory effort GI: Other: dressing soiling at suction unchanged from yesterday, fundus firm nontender, mild distension, no RUQ pain Neuro: General: oriented to person, oriented to place and oriented to time Other: DTR 2+ Extrem: General: normal to inspection (1+ edema bilat, neg homans) Psych: Mental Status: mental status grossly normal
[2022-11-22 10:57] LABS: Uric Acid 4.1 mg/dL (2.5-7.5)
[2022-11-22 10:58] LABS: Alanine Aminotransferase 15 U/L (6-35); Albumin Level 2.9 g/dL (3.5-5.1); Alkaline Phosphatase 109 U/L (38-126); Anion Gap 2 mmol/L (8-16); Aspartate Amino Transferase 22 U/L (14-36); Bilirubin,Total 0.3 mg/dL (0.2-1.3); Blood Urea Nitrogen 9 mg/dL (7-17); Calcium 8.9 mg/dL (8.4-10.2); Carbon Dioxide 28 mmol/L (22-30); Chloride 105 mmol/L (98-107); Estimated CRCL calculation 139 ml/min; Estimated Glomerular Filt Rate > 60; Glucose 125 mg/dL (65-110); Sodium 135 mmol/L (137-145)
[2022-11-22 12:15] VITALS: BP 150/80; PULSE 81
[2022-11-22 16:15] VITALS: BP 154/91; PULSE 76
[2022-11-22 18:50] VITALS: BP 157/91; PULSE 78; RESP 16; TEMP 36.6; O2SAT 99
[2022-11-22 23:15] VITALS: BP 144/87; PULSE 79; RESP 16; TEMP 36.8; O2SAT 98
[2022-11-23] MEDS: SIMETHICONE 80 MG TAB.CHEW PO ×2 (03:35→07:47)
[2022-11-23] MEDS: HYDROcodone/acetaminophen (*CRX) 5-325 MG TABLET 1 TAB PO ×3 (03:35→11:26)
[2022-11-23] MEDS: IBUPROFEN 600 MG TABLET PO ×2 (03:35→09:07)
[2022-11-23 03:40] VITALS: BP 136/90; PULSE 80; RESP 16; TEMP 36.5; O2SAT 99
[2022-11-23 07:40] VITALS: BP 140/80; PULSE 89; RESP 18; TEMP 36.9; O2SAT 98
[2022-11-23] MEDS: POLYSACCHARIDE IRON COMPLEX 150 MG CAPSULE PO (07:47)
[2022-11-23] MEDS: DOCUSATE SODIUM 100 MG CAPSULE PO (07:50)
[2022-11-23] MEDS: NIFEdipine 30 MG TAB.ER.24 PO (09:07)
--- NOTE | 2022-11-23 12:06 | PC.NURSE ---
Patient viewed the discharge video Mother & Baby Care, The First Two Weeks . Patient was given the opportunity and encouraged to ask questions. Patient verbalized understanding of information shared and has been given the mother/baby guide for home reference.
[2022-11-23 12:30] VITALS: BP 135/86; PULSE 84; RESP 18; TEMP 37.1; O2SAT 99
--- NOTE | 2022-11-23 13:05 | PM.OBDSVD ---
DS: Admitting Diagnosis Discharge Date 11/23/22 Admitting Diagnosis intrauterine at term gestational hypertension prior x1 obesity DS: Discharge Diagnosis Discharge Diagnosis (1) Previous section: Code(s): Z98.891 - History of uterine scar from previous surgery Status: Acute (2) Supervision of high risk , unspecified, third trimester: Code(s): O09.93 - Supervision of high risk , unspecified, third trimester Status: Acute (3) Gestational hypertension: Code(s): O13.9 - Gestational [-induced] hypertension without significant proteinuria, unspecified trimester Status: Acute (4) Obesity, morbid, BMI 50 or higher: Code(s): E66.01 - Morbid (severe) obesity due to excess calories Status: Acute OB - DS: Summary OB Procedures : None OB Procedures Intrapartum: OB Procedures: : None Peripartum Data Delivery Method: Section Procedures: Procedures Operation Date: 11/20/22 12:00 Actual Procedure Side Surgeon p Repeat Section Justyn Nuñez MD complications: none Status at Discharge Functional status at discharge: independent ambulation Overall status at discharge: patient is progressing back to baseline Time Spent with Patient Time attestation: Total time spent providing and/or coordinating discharge services: Time spent: Less than 30 minutes Exam Const: General: comfortable and no acute distress Resp: Effort & Inspection: normal respiratory effort Auscultation: clear to auscultation bilaterally Cardio: Rate: regular rate GI: Inspection: non-distended GI Palp: Yes Soft to palpation, No Firmness to palpation present (GI), Yes Tenderness to palpation present (GI) (mild tenderness over incision ) and No Guarding due to palpation present (GI) Auscultation: normal bowel sounds Psych: Appearance: grossly normal Mental Status: mental status grossly normal Discharge Plan Discharge Discharging Clinician: Justyn Nuñez Patient Disposition: Home, Self-Care Activity: as tolerated and pelvic rest Diet: regular Patient Instructions: Antibiotic Form Stand Alone Forms: General Discharge Information Follow-up/Referrals: Justyn Nuñez MD [Physician] - 1 Week Discharge Medications: New hydrocodone-acetaminophen 5-325 mg tablet 1 tablet PO Q6H PRN (Reason: pain) Qty: 28 0RF nifedipine [Procardia XL] 30 mg Tablet Extended Release 24hr 30 mg PO QAM Qty: 30 2RF ibuprofen 600 mg tablet 600 mg PO Q6H PRN (Reason: pain) Qty: 30 0RF Continued prenat.vits,jing,rbj-xfxb-ziimg Tablet 1 tablet PO DAILY aspirin 81 mg tablet,chewable 162 mg PO DAILY Date of admission: 11/20/22 09:54 Primary Care Provider: Lilliana,Param Olmedo Admitting Provider: Mikey Gandhi Attending physician on admission: Mikey Gandhi Condition: Stable
[2022-11-24 09:29] VITALS: BP 142/96; PULSE 79; RESP 18; TEMP 36.9; O2SAT 99
== END 2022-11-23 15:15 | disposition home or self-care (01) | DRG 788 ==
LOC: ANHOB2 11-23 14:32 → ANHLDR 11-24 08:42 → ANHOB2 11-24 08:42
PROVIDERS: Obstetrics & Gynecology; Admitting Provider Student in an Organized Health Care Education/Training Program; PCP Internal Medicine; Visit Provider Student in an Organized Health Care Education/Training Program
PROC: 10D00Z1 Extraction of Products of Conception, Low, Open Approach (ICD-10-PCS; CPT 59514; principal; 2022-11-20 12:00)
DX: O34.219 Maternal care for unspecified type scar from previous cesarean delivery (principal); O13.4 Gestational [pregnancy-induced] hypertension without significant proteinuria, complicating childbirth; Z3A.38 38 weeks gestation of pregnancy; Z37.0 Single live birth; O99.214 Obesity complicating childbirth; E66.01 Morbid (severe) obesity due to excess calories; O69.81X0 Labor and delivery complicated by cord around neck, without compression, not applicable or unspecified
CPT/HCPCS: 36415; 80053; 84550; 85025; 85027; A9270; J0131; J0690; J1885; J2274; J2405; J2590; J3480; J7120